=== PATIENT | male | born 1970 | race Caucasian/White ===

== ENCOUNTER 2018-02-28 22:38 | Inpatient (IN) | payer MEDICAID, OTHER ==
[2018-03-01] MEDS: ONDANSETRON 4 MG INJ IV (01:50)
[2018-03-01] MEDS: ASPIRIN 81 MG TAB PO (01:50)
[2018-03-01] MEDS: DEXAMETHASONE 10 MG/ML 1 ML INJ PO (01:50)
[2018-03-01] MEDS: morphine 4 MG/ML VIAL IV (01:50)
[2018-03-01] MEDS: SOD CHLORIDE 0.9% 1,000 ML IV ×2 (01:54→05:40)
[2018-03-01 01:56] LABS: ADD MAN DIFF? NO
[2018-03-01 01:57] LABS: WHITE BLOOD COUNT 11.5 10^3/ul (4.8-10.8)
[2018-03-01 01:58] LABS: BASOPHIL # 0.1 10^3/ul (0.0-0.1); BASOPHILS % 0.9 % (0.0-2.0); EOSINOPHILS # 0.2 10^3/ul (0.0-0.5); HEMATOCRIT 42.8 % (42.0-52.0); HEMOGLOBIN 14.4 g/dl (14.0-18.0); LYMPHOCYTES # 3.1 10^3/ul (0.8-2.9); LYMPHOCYTES % 26.7 % (15.0-51.0); MEAN CORPUSCULAR HEMOGLOBIN 28.9 pg (29.0-33.0); MEAN CORPUSCULAR HGB CONC 33.6 g/dl (32.0-37.0); MEAN CORPUSCULAR VOLUME 85.9 fl (82.0-101.0); MEAN PLATELET VOLUME 10.3 fl (7.4-10.4); MONOCYTE # 1.2 10^3/ul (0.3-0.9); NEUTROPHIL # 6.7 10^3/ul (1.6-7.5); NEUTROPHILS % 58.3 % (39.0-77.0); PLATELET COUNT 287 10^3/UL (140-415); RED BLOOD COUNT 4.98 10^6/ul (4.70-6.10); RED CELL DISTRIBUTION WIDTH 13.2 % (11.5-14.5)
[2018-03-01 02:24] LABS: ALANINE AMINOTRANSFERASE 22 IU/L (13-69); ALBUMIN 3.8 g/dl (3.3-4.9); ALBUMIN/GLOBULIN RATIO 1.15; ALKALINE PHOSPHATASE 101 IU/L (42-121); ANION GAP 17 (8-16); ASPARTATE AMINO TRANSFERASE 24 IU/L (15-46); BILIRUBIN,INDIRECT 0.8 mg/dl (0-1.1); BILIRUBIN,TOTAL 0.8 mg/dl (0.2-1.3); BLOOD UREA NITROGEN 8 mg/dl (7-20); CALCIUM 8.9 mg/dl (8.4-10.2); CARBON DIOXIDE 22 mmol/L (21-31); CHLORIDE 104 mmol/L (97-110); CREATINE KINASE 24 IU/L (23-200); CREATININE 0.49 mg/dl (0.61-1.24); GLUCOSE 309 mg/dl (70-220); POTASSIUM 4.1 mmol/L (3.5-5.1); SODIUM 139 mmol/L (135-144); TOTAL PROTEIN 7.1 g/dl (6.1-8.1)
[2018-03-01 02:36] LABS: TROPONIN-I < 0.012 ng/ml (0.00-0.12)
[2018-03-01] MEDS ORDERED: NACL 0.9% 3 ML SYG IV (05:30)
[2018-03-01] MEDS ORDERED: ACETAMINOPHEN 325 MG TAB PO (05:30)
[2018-03-01] MEDS ORDERED: ONDANSETRON 4 MG INJ IV (05:30)
[2018-03-01] MEDS ORDERED: morphine 2 MG INJ IV (05:30)
[2018-03-01] MEDS ORDERED: ALBUTEROL/IPRATROPIUM (NEB) 3 ML AMP HHN (05:30)
[2018-03-01 05:42] LABS: ADD UMIC NO; UR ASCORBIC ACID NEGATIVE (NEGATIVE); UR BILIRUBIN (Dip) NEGATIVE (NEGATIVE); UR BLOOD (Dip) NEGATIVE (NEGATIVE); UR CLARITY CLEAR (CLEAR); UR COLOR YELLOW (YELLOW); UR GLUCOSE (Dip) 3+ mg/dL (NEGATIVE); UR KETONES (Dip) TRACE mg/dL (NEGATIVE); UR LEUKOCYTE ESTERASE (Dip) NEGATIVE Leu/ul (NEGATIVE); UR NITRITE (Dip) NEGATIVE (NEGATIVE); UR SPECIFIC GRAVITY (Dip) 1.033 (1.003-1.030); UR TOTAL PROTEIN (Dip) NEGATIVE (NEGATIVE); UR UROBILINOGEN (Dip) NEGATIVE (NEGATIVE)
[2018-03-01] MEDS ORDERED: GLUCAGON 1 MG INJ IM (06:00)
[2018-03-01] MEDS ORDERED: GLUCOSE GEL 15 GRAM TUBE PO ×2 (06:00)
[2018-03-01] MEDS ORDERED: GLUCOSE GEL 15 GRAM TUBE BUCCAL (06:00)
[2018-03-01] MEDS ORDERED: DEXTROSE 50% 50 ML SYRINGE IV ×2 (06:00)
[2018-03-01] MEDS ORDERED: METHYLPRED. NA SUCC 1,000 MG in DEXTROSE 5% 50 ML IVPB (09:00)
[2018-03-01] MEDS: metFORMIN 500 MG TAB PO ×2 (09:27→18:00)
[2018-03-01] MEDS: LINAGLIPTIN 5 MG TABLET PO (09:30)
[2018-03-01] MEDS: MAGNESIUM OXIDE 400 MG TAB PO ×2 (09:31→20:46)
[2018-03-01] MEDS: ESCITALOPRAM 10 MG TAB PO (09:31)
[2018-03-01] MEDS: GABAPENTIN 400 MG CAP PO ×2 (09:31→20:46)
[2018-03-01] MEDS: INSULIN ASPART [NOVOLOG] 3 ML PEN SC ×4 (09:36→20:46)
[2018-03-01] MEDS: DOCUSATE SODIUM 100 MG CAP PO ×2 (09:51→20:46)
[2018-03-01 12:09] LABS: INR 0.96; PROTIME 12.9 Sec (11.9-14.9)
[2018-03-01 12:10] LABS: PARTIAL THROMBOPLASTIN TIME 27.5 Sec (25.0-35.0)
[2018-03-01] MEDS: INSULIN GLARGINE [LANtus] 3 ML PEN SC (20:45)
[2018-03-01] MEDS: ATORVASTATIN 40 MG TAB PO (20:46)
[2018-03-02] MEDS: ACCU-CHEK XX (02:00)
[2018-03-02 06:13] LABS: ADD MAN DIFF? NO
[2018-03-02 06:20] LABS: WHITE BLOOD COUNT 11.4 10^3/ul (4.8-10.8)
[2018-03-02 06:20] LABS: BASOPHIL # 0.1 10^3/ul (0.0-0.1); BASOPHILS % 0.7 % (0.0-2.0); EOSINOPHILS # 0.1 10^3/ul (0.0-0.5); EOSINOPHILS % 1.2 % (0.0-7.0); HEMATOCRIT 40.9 % (42.0-52.0); HEMOGLOBIN 13.4 g/dl (14.0-18.0); LYMPHOCYTES # 3.5 10^3/ul (0.8-2.9); LYMPHOCYTES % 31.1 % (15.0-51.0); MEAN CORPUSCULAR HEMOGLOBIN 28.6 pg (29.0-33.0); MEAN CORPUSCULAR HGB CONC 32.8 g/dl (32.0-37.0); MEAN CORPUSCULAR VOLUME 87.2 fl (82.0-101.0); MEAN PLATELET VOLUME 10.3 fl (7.4-10.4); MONOCYTES % 8.6 % (0.0-11.0); NEUTROPHIL # 6.4 10^3/ul (1.6-7.5); NEUTROPHILS % 56.3 % (39.0-77.0); PLATELET COUNT 279 10^3/UL (140-415); RED BLOOD COUNT 4.69 10^6/ul (4.70-6.10); RED CELL DISTRIBUTION WIDTH 13.4 % (11.5-14.5)
[2018-03-02 06:45] LABS: ALANINE AMINOTRANSFERASE 22 IU/L (13-69); ALBUMIN 3.2 g/dl (3.3-4.9); ALKALINE PHOSPHATASE 77 IU/L (42-121); ANION GAP 10 (8-16); ASPARTATE AMINO TRANSFERASE 12 IU/L (15-46); BILIRUBIN,INDIRECT 0.5 mg/dl (0-1.1); BILIRUBIN,TOTAL 0.5 mg/dl (0.2-1.3); BLOOD UREA NITROGEN 15 mg/dl (7-20); CARBON DIOXIDE 31 mmol/L (21-31); CHLORIDE 106 mmol/L (97-110); CHOL/HDL RATIO 8.4 RATIO; CHOLESTEROL 252 mg/dl (100-200); CREATININE 0.74 mg/dl (0.61-1.24); GLUCOSE 266 mg/dl (70-220); HDL CHOLESTEROL 30 mg/dl (27-67); LDL CHOLESTEROL,CALCULATED 175 mg/dl; MAGNESIUM 1.9 mg/dl (1.7-2.5); PHOSPHORUS 3.4 mg/dl (2.5-4.9); POTASSIUM 4.3 mmol/L (3.5-5.1); SODIUM 143 mmol/L (135-144); TOTAL PROTEIN 6.1 g/dl (6.1-8.1); TRIGLYCERIDES 233 mg/dl (0-149)
[2018-03-02] MEDS: ESCITALOPRAM 10 MG TAB PO (08:34)
[2018-03-02] MEDS: DOCUSATE SODIUM 100 MG CAP PO ×2 (08:34→20:57)
[2018-03-02] MEDS: LINAGLIPTIN 5 MG TABLET PO (08:34)
[2018-03-02] MEDS: metFORMIN 500 MG TAB PO ×2 (08:34→17:37)
[2018-03-02] MEDS: GABAPENTIN 400 MG CAP PO ×2 (08:34→20:57)
[2018-03-02] MEDS: MAGNESIUM OXIDE 400 MG TAB PO ×2 (08:34→20:57)
[2018-03-02] MEDS: INSULIN ASPART [NOVOLOG] 3 ML PEN SC ×4 (08:37→20:57)
[2018-03-02] MEDS: FISH OIL 1,000 MG CAP PO ×2 (08:38→20:57)
[2018-03-02 08:48] LABS: HEMOGLOBIN A1C 10.3 % (0-5.9)
[2018-03-02] MEDS ORDERED: LIDOCAINE 1% (MDV) 10 ML INJ (11:16)
[2018-03-02 12:37] LABS: HEPATITIS B SURFACE ANTIGEN NEGATIVE (NEGATIVE)
[2018-03-02 12:55] LABS: HEPATITIS C VIRAL ANTIBODY NEGATIVE (NEGATIVE)
[2018-03-02] MEDS: REPAGLINIDE 1 MG TAB PO ×2 (13:00→17:37)
[2018-03-02 13:27] LABS: CSF MN% 66.7 %; CSF PMN% 33.3 %; CSF RBC 0 /uL (0-0); CSF WBC 3 /cmm (0-10)
[2018-03-02 13:37] LABS: GLUCOSE,CSF 125 mg/dl (50-80)
[2018-03-02 13:37] LABS: TOTAL PROTEIN,CSF 53 mg/dl (12-60)
[2018-03-02 13:52] LABS: CSF CLARITY CLEAR
[2018-03-02 13:52] LABS: CSF COLOR COLORLESS
[2018-03-02 13:53] LABS: CSF#TUBE COUNT TUBE#4; CSF#TUBES REC'D 4
[2018-03-02 14:54] LABS: RAPID PLASMA REAGIN NONREACTIVE (NR)
[2018-03-02] MEDS: METHYLPRED. NA SUCC 1,000 MG in DEXTROSE 5% 50 ML IVPB (18:37)
[2018-03-02] MEDS: INSULIN GLARGINE [LANtus] 3 ML PEN SC (20:58)
[2018-03-03] MEDS: ACCU-CHEK XX (01:47)
[2018-03-03] MEDS: metFORMIN 500 MG TAB PO ×2 (08:09→17:33)
[2018-03-03] MEDS: MAGNESIUM OXIDE 400 MG TAB PO ×2 (08:09→23:34)
[2018-03-03] MEDS: ESCITALOPRAM 10 MG TAB PO (08:09)
[2018-03-03] MEDS: GABAPENTIN 400 MG CAP PO ×2 (08:09→23:34)
[2018-03-03] MEDS: REPAGLINIDE 1 MG TAB PO ×3 (08:09→17:33)
[2018-03-03] MEDS: LINAGLIPTIN 5 MG TABLET PO (08:09)
[2018-03-03] MEDS: FISH OIL 1,000 MG CAP PO ×2 (08:10→21:00)
[2018-03-03] MEDS: INSULIN ASPART [NOVOLOG] 3 ML PEN SC ×4 (08:11→23:32)
[2018-03-03] MEDS: DOCUSATE SODIUM 100 MG CAP PO ×2 (08:12→23:35)
[2018-03-03] MEDS: METHYLPRED. NA SUCC 1,000 MG in DEXTROSE 5% 50 ML IVPB (09:52)
[2018-03-03] MEDS: INSULIN GLARGINE [LANtus] 3 ML PEN SC (23:33)
[2018-03-03] MEDS: ATORVASTATIN 40 MG TAB PO (23:34)
[2018-03-04] MEDS: ACCU-CHEK XX (02:00)
[2018-03-04] MEDS: REPAGLINIDE 1 MG TAB PO ×3 (07:54→17:31)
[2018-03-04] MEDS: metFORMIN 500 MG TAB PO ×2 (07:54→17:31)
[2018-03-04] MEDS: NPH, HUMAN INSULIN ISOPHANE 3ML VIAL SC (07:56)
[2018-03-04] MEDS: INSULIN ASPART [NOVOLOG] 3 ML PEN SC ×4 (07:56→22:33)
[2018-03-04] MEDS: METHYLPRED. NA SUCC 1,000 MG in DEXTROSE 5% 50 ML IVPB ×2 (08:01→09:17)
[2018-03-04] MEDS: ESCITALOPRAM 10 MG TAB PO (08:02)
[2018-03-04] MEDS: GABAPENTIN 400 MG CAP PO ×2 (08:02→22:34)
[2018-03-04] MEDS: LINAGLIPTIN 5 MG TABLET PO (08:02)
[2018-03-04] MEDS: MAGNESIUM OXIDE 400 MG TAB PO ×2 (08:02→22:34)
[2018-03-04] MEDS: DOCUSATE SODIUM 100 MG CAP PO ×2 (08:02→22:34)
[2018-03-04] MEDS: FISH OIL 1,000 MG CAP PO ×2 (08:07→21:00)
[2018-03-04] MEDS: INSULIN GLARGINE [LANtus] 3 ML PEN SC (22:32)
[2018-03-04] MEDS: ATORVASTATIN 40 MG TAB PO (22:34)
[2018-03-05] MEDS: ACCU-CHEK XX (02:00)
[2018-03-05] MEDS: DOCUSATE SODIUM 100 MG CAP PO (07:56)
[2018-03-05] MEDS: GABAPENTIN 400 MG CAP PO (07:57)
[2018-03-05] MEDS: INSULIN ASPART [NOVOLOG] 3 ML PEN SC ×3 (07:57→17:17)
[2018-03-05] MEDS: ESCITALOPRAM 10 MG TAB PO (07:57)
[2018-03-05] MEDS: metFORMIN 500 MG TAB PO ×2 (07:57→17:14)
[2018-03-05] MEDS: FISH OIL 1,000 MG CAP PO (07:57)
[2018-03-05] MEDS: REPAGLINIDE 1 MG TAB PO ×3 (07:57→17:14)
[2018-03-05] MEDS: LINAGLIPTIN 5 MG TABLET PO (07:57)
[2018-03-05] MEDS: MAGNESIUM OXIDE 400 MG TAB PO (07:57)
[2018-03-05] MEDS: NPH, HUMAN INSULIN ISOPHANE 3ML VIAL SC (08:30)
[2018-03-05] MEDS: METHYLPRED. NA SUCC 1,000 MG in DEXTROSE 5% 50 ML IVPB (09:11)
[2018-03-06 22:24] LABS: VDRL, CSF NON-REACTIVE
== END 2018-03-05 18:10 | disposition home or self-care (01) | DRG 99 ==
LOC: E/R 22:38 → PP2 03-01 04:58
DX: G37.3 Acute transverse myelitis in demyelinating disease of central nervous system (principal); E11.65 Type 2 diabetes mellitus with hyperglycemia; E78.2 Mixed hyperlipidemia; Z72.0 Tobacco use; M62.81 Muscle weakness (generalized); I10 Essential (primary) hypertension; E78.00 Pure hypercholesterolemia, unspecified
CPT/HCPCS: 36415; 70450; 71045; 80053; 80061; 81003; 82550; 82945; 82962; 83036; 83735; 84100; 84157; 84443; 84484; 85025; 85610; 85730; 86592; 86803; 87070; 87340; 89051; 93005; 96372; 96374; 96375; 97162; 99285-25